=== PATIENT | male | born 2000 | race African-American/Black ===

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

== ENCOUNTER 2021-02-23 02:08 | Emergency (ER) | payer OTHER ==
[2021-02-23 02:25] LABS: Urine Blood Negative (Negative); Urine Glucose Trace (Negative); Urine Protein 2+ (Negative); Urine Specific Gravity 1.025 (1.005-1.030); Urine pH 7.5 (5.0-7.0)
[2021-02-23] MEDS ORDERED: NA CHLORIDE 0.9% 1,000 ML ONE ×2 (02:37→05:53)
[2021-02-23 03:04] LABS: Barbiturates NEGATIVE (NEGATIVE); Benzodiazepines POSITIVE (NEGATIVE); Cocaine NEGATIVE (NEGATIVE); METHAMPHETAM NEGATIVE (NEGATIVE); Methadone NEGATIVE (NEGATIVE); Opiates NEGATIVE (NEGATIVE); Phencyclidine NEGATIVE (NEGATIVE); THC Cannibis POSITIVE (NEGATIVE)
[2021-02-23 03:16] LABS: Absolute Lymphocytes (CBC) 1.3 K/uL (0.7-4.9); Basophils % 0.3 % (0-1.3); Hematocrit 39.4 % (39.6-49.0); Lymphocytes % 10.3 % (15.3-44.8); Protime INR 1.22; RBC Red Blood Cell Count 4.26 M/uL (4.33-5.43)
[2021-02-23 03:25] LABS: ALT/SGPT 27 U/L (12-78); AST/SGOT 17 U/L (15-37); Albumin 3.6 g/dL (3.4-5.0); Alkaline Phosphatase 55 U/L (45-117); BUN Blood Urea Nitrogen 6 mg/dL (7-18); Bicarbonate 28 mmol/L (21-32); Bilirubin Direct < 0.1 mg/dL (0-0.2); Bilirubin Total 0.3 mg/dL (0.2-1.0); Glucose Level 152 mg/dL (74-106); Potassium 3.2 mmol/L (3.5-5.1); Protein, Total 6.6 g/dL (6.4-8.2); Sodium Level 143 mmol/L (136-145)
[2021-02-23] MEDS ORDERED: POTASSIUM CL SA 10 MEQ TAB PO ONE (05:10)
--- NOTE | 2021-02-23 07:25 | RAD REPORT ---
EXAM DESCRIPTION: Viviana Single View02/23/2021 2:35 am CLINICAL HISTORY: Overdose COMPARISON: 2018 FINDINGS: The patient is in a poor degree of inspiration. The lungs appear clear of acute infiltrate. The heart is normal size
[2021-02-23] MEDS ORDERED: ALBUTEROL 2.5 MG/3 ML NEB SOL ONE (07:37)
[2021-02-23] MEDS ORDERED: IPRATROPIUM BROM 0.5MG/2.5ML ONE (07:38)
--- NOTE | 2021-02-23 07:49 | EKG ---
Test Date: 2021-02-23 Test Time: 02:10:10 Plant Attendant: LISET MEASUREMENT RESULTS: Intervals: Rate: 92 IA: 132 QRSD: 88 QT: 346 QTc: 427 [place]: P: 56 IA: 132 QRS: 50 T: 53 INTERPRETIVE STATEMENTS: Normal sinus rhythm Normal ECG Compared to ECG 11/29/2018 20:37:25 No significant changes Electronically Signed On 02-23-21 07:48:51 CDT by Raul Riley
--- NOTE | 2021-02-23 09:34 | ER ---
Nurse's Notes [facility] Name: Philippe Guerra Age: 20 yrs Sex: Male : 2000 Arrival Date: 02/23/2021 Time: 02:11 Bed 3 Private MD: Diagnosis: Abuse of non-psychoactive substances Presentation: 02/23 02:19 Chief complaint: EMS states: they were toned out for report of pt being unresponsive bb after pt snorting Percocet and taking alprazolam and pt admits to drinking ETOH. Coronavirus screen: At this time, the client does not indicate any symptoms associated with coronavirus-19. Ebola Screen: No symptoms or risks identified at this time. Initial Sepsis Screen: Does the patient meet any 2 criteria? No. Patient's initial sepsis screen is negative. Does the patient have a suspected source of infection? No. Patient's initial sepsis screen is negative. Risk Assessment: Do you want to hurt yourself or someone else? Unable to obtain. Onset of symptoms was February 23, 2021. 02:19 Method Of Arrival: Ambulatory bb 02:19 Acuity: DANIELA 2 bb 02:24 Note EMS states on their arrival pt respiratory rate was 4-6 breaths per minute, O2 was bb 30%, HR in the 50s, SBP 69 and irregular and pt was responsive to painful stimuli. Care prior to arrival: Medication(s) given: Normal saline infusion, Narcan for a total of 6 mg IV initiated. 18 GA, in the right antecubital area, Glucose check: 196. Historical: - Allergies: 02:23 No Known Allergies; bb - Home Meds: 09:27 None [Active]; jl7 - PMHx: 09:27 None; jl7 - PSHx: 09:27 None; jl7 - Immunization history:: Adult Immunizations unknown, Adult Immunizations unknown. - Social history:: Smoking status: unknown Patient uses street drugs, Smoking status: unknown. Screenin:21 Abuse screen: Denies threats or abuse. Nutritional screening: No deficits noted. ea Tuberculosis screening: No symptoms or risk factors identified. Fall Risk IV access (20 points). Assessment: 02:26 General: Behavior is cooperative, drowsy. Pain: Denies pain. Neuro: Level of ea Consciousness is Drowsy. Oriented to person. Cardiovascular: Patient's skin is warm and dry. Respiratory: Airway is patent Respiratory effort is even, unlabored, Respiratory pattern is regular, symmetrical, Pt currently on O2 at 5 L per nasal cannula, pt tolerating well. Derm: Skin is pink, warm \T\ dry. 03:10 Reassessment: Patient and/or family updated on plan of care and expected duration. Pain ea level reassessed. Pt resting with eyes closed, respirations even and unlabored, chest expansions even and symmetrical. Parents remain at bedside. 04:18 Reassessment: No changes from previously documented assessment. Patient and/or family ad5 updated on plan of care and expected duration. Pain level reassessed. Family remains at bedside. Pt resting comfortably in stretcher, remains low and locked, bedrails x 2, call light within reach. VSS. Will continue to monitor. 05:37 Reassessment: No changes from previously documented assessment. Pt remains drowsy, ad5 family at bedside. Pt arouses to tactile stimuli, continued O2 supplementation via NC at this time d/t O2 sat to 88% on RA. Provider aware. Will continue to monitor. 07:00 Reassessment: RECD REPORT FROM BLOSSOM DURAN. 20YO BM P/W OD/INGESTION. DISPO ON HOLD FOR bp SOBRIETY. 07:24 Reassessment: Ambulated pt without O2, pt sats dropped to 84%, Dr. Hawkins notified, VO for jl7 3:1 Neb treatment. O2 placed back on pt while in bed and sats remained less than 90% with occasional increase to 96% with verbal stimulation. Parents at bedside, deny any medical history. Parents report that his friend just 2 months ago from the same situation and he is still continuing to use recreational drugs. Breathing treatment placed on pt, monitoring via bedside cardiac and O2 monitor. 09:32 Reassessment: Removed o2 and let pt sleep while monitoring his O2 sats, sats stayed jl7 91-92%. Ambulated pt and sats remained 91-92%. ERD notified. Vital Signs: 02:19 BP 138 / 84; Pulse 110; Resp 16 S; Temp 98(O); Pulse Ox 100% on 5 lpm NC; Weight 91.63 bb kg (R); Height 5 ft. 6 in. (167.64 cm) (R); Pain 0/10; 03:11 BP 102 / 60; Pulse 71; Resp 16; Pulse Ox 95% on 3 lpm NC; ea 04:19 BP 98 / 50; Pulse 64; Resp 12 S; Pulse Ox 94% on 3 lpm NC; ad5 05:36 BP 92 / 60; Pulse 59; Resp 16; Pulse Ox 95% on R/A; ea 07:00 BP 111 / 59; Pulse 96; Resp 17; Pulse Ox 94% ; bp 07:24 BP 101 / 63; Pulse 85; Resp 17; Pulse Ox 95% on Nebulizer Mask; jl7 07:30 BP 108 / 63; Pulse 85; Resp 17; Pulse Ox 96% on 3 lpm NC; jl7 08:00 BP 99 / 55; Pulse 89; Resp 15; Pulse Ox 95% on 3 lpm NC; jl7 08:30 BP 102 / 53; Pulse 86; Resp 15 S; Pulse Ox 96% on 3 lpm NC; jl7 09:00 BP 98 / 53; Pulse 81; Resp 14; Pulse Ox 97% on 3 lpm NC; jl7 09:20 Pulse Ox 91% on R/A; jl7 09:26 BP 107 / 61; Pulse 83; Resp 17; Pulse Ox 92% on R/A; jl7 09:32 BP 113 / 74; Pulse 85; Resp 15 S; Pulse Ox 93% on R/A; jl7 02:19 Body Mass Index 32.60 (91.63 kg, 167.64 cm) bb ED Course: 02:11 Patient arrived in ED. mw2 02:17 Mert Hawkins MD is Attending Physician. pkl 02:21 Blossom Storey, RN is Primary Nurse. ea 02:21 Maintain EMS IV. Dressing intact. Good blood return noted. Site clean \T\ dry. Gauge \T\ ea site: 18 G RAC . 02:21 Patient has correct armband on for positive identification. Placed in gown. Bed in low ea position. Call light in reach. Side rails up X2. monitoring engineer on. Pulse ox on. NIBP on. 02:22 Triage completed. bb 02:23 Arm band placed on right wrist. Patient placed in an exam room, on a stretcher, on ea oxygen, on monitoring engineer, on pulse oximetry. 02:35 XRAY CXR (1 view) In Process Unspecified. EDMS 07:06 Primary Nurse role handed off by Blossom Storey RN bp 07:06 Collin Delgado, RN is Primary Nurse. bp 08:48 Attending Physician role handed off by Mert Hawkins MD kdr 08:48 Alvin Weiner MD is Attending Physician. kdr 09:43 No provider procedures requiring assistance completed. IV discontinued, intact, jl7 bleeding controlled, No redness/swelling at site. Pressure dressing applied. Administered Medications: 02:19 Drug: NS 0.9% 1000 ml Route: IV; Rate: 1000 ml; Site: right antecubital; ad5 04:55 Drug: K-Dur (potassium chloride) 40 mEq Route: PO; ea 05:36 Drug: NS 0.9% 1000 ml Route: IV; Rate: 1 bolus; Site: right antecubital; ad5 07:20 Drug: Albuterol - atroVENT (ipratropium) (3:1) (2.5 mg - 0.5 mg) 3 ml Route: Nebulizer; bp 08:36 Follow up: Response: No adverse reaction jl7 Outcome: 09:33 Discharge ordered by . kdr 09:43 Discharged to home ambulatory, with family. jl7 09:43 Condition: stable 09:43 Discharge instructions given to patient, Instructed on discharge instructions, follow up and referral plans. Demonstrated understanding of instructions, follow-up care. 09:56 Patient left the ED. jl7 Signatures: Dispatcher [employer] EDMS Mert Hawkins MD MD pkAlvin Horvath MD MD kdr Ballard, Brenda, RN Win Baron RN RN jl7 Blossom Storey RN RN ea Peltier, Brian, RN RN bp [place], MyKena 2 Adam Bailey ad5 Corrections: (The following items were deleted from the chart) 05:39 05:37 Reassessment: No changes from previously documented assessment. Pt remains ad5 drowsy, family at bedside. Pt arouses to tactile stimuli, still requires O2 supplementation via NC at this time. Will continue to monitor. ad5
--- NOTE | 2021-02-23 09:35 | EDPHYS ---
Physician Documentation [facility] Name: Philippe Guerra Age: 20 yrs Sex: Male : 2000 Arrival Date: 02/23/2021 Time: 02:11 Bed 3 Private MD: ED Physician Alvin Weiner HPI: 02/23 03:08 This 20 yrs old Black Male presents to ER via Ambulatory with unknown complaint. pkl 03:08 The patient presents with decreased mental status. Onset: The symptoms/episode pkl began/occurred just prior to arrival. Possible causes: drug use, benzodiazepines, marijuana, alcohol. Associated signs and symptoms: The patient has no apparent associated signs or symptoms. Historical: - Allergies: :23 No Known Allergies; bb - Home Meds: : None [Active]; jl7 - PMHx: : None; jl7 - PSHx: 09: None; jl7 - Immunization history:: Adult Immunizations unknown, Adult Immunizations unknown. - Social history:: Smoking status: unknown Patient uses street drugs, Smoking status: unknown. ROS: 03:08 Eyes: Negative for injury, pain, redness, and discharge, ENT: Negative for injury, pkl pain, and discharge, Neck: Negative for injury, pain, and swelling, Cardiovascular: Negative for chest pain, palpitations, and edema, Respiratory: Negative for shortness of breath, cough, wheezing, and pleuritic chest pain, Abdomen/GI: Negative for abdominal pain, nausea, vomiting, diarrhea, and constipation, Back: Negative for injury and pain, : Negative for injury, bleeding, discharge, and swelling, MS/Extremity: Negative for injury and deformity, Skin: Negative for injury, rash, and discoloration. 03:08 Neuro: Positive for altered mental status. Exam: 03:08 Head/Face: Normocephalic, atraumatic. Eyes: Pupils equal round and reactive to light, pkl extra-ocular motions intact. Lids and lashes normal. Conjunctiva and sclera are non-icteric and not injected. Cornea within normal limits. Periorbital areas with no swelling, redness, or edema. ENT: Nares patent. No nasal discharge, no septal abnormalities noted. Tympanic membranes are normal and external auditory canals are clear. Oropharynx with no redness, swelling, or masses, exudates, or evidence of obstruction, uvula midline. Mucous membranes moist. Neck: Trachea midline, no thyromegaly or masses palpated, and no cervical lymphadenopathy. Supple, full range of motion without nuchal rigidity, or vertebral point tenderness. No Meningismus. Chest/axilla: Normal chest wall appearance and motion. Nontender with no deformity. No lesions are appreciated. Cardiovascular: Regular rate and rhythm with a normal S1 and S2. No gallops, murmurs, or rubs. Normal PMI, no JVD. No pulse deficits. Respiratory: Lungs have equal breath sounds bilaterally, clear to auscultation and percussion. No rales, rhonchi or wheezes noted. No increased work of breathing, no retractions or nasal flaring. Abdomen/GI: Soft, non-tender, with normal bowel sounds. No distension or tympany. No guarding or rebound. No evidence of tenderness throughout. Back: No spinal tenderness. No costovertebral tenderness. Full range of motion. Skin: Warm, dry with normal turgor. Normal color with no rashes, no lesions, and no evidence of cellulitis. MS/ Extremity: Pulses equal, no cyanosis. Neurovascular intact. Full, normal range of motion. 03:08 Neuro: Orientation: Not oriented to person, place, time, Mentation: sleepy, responsive to pain, Motor: moves all fours. Vital Signs: 02:19 BP 138 / 84; Pulse 110; Resp 16 S; Temp 98(O); Pulse Ox 100% on 5 lpm NC; Weight 91.63 bb kg (R); Height 5 ft. 6 in. (167.64 cm) (R); Pain 0/10; 03:11 BP 102 / 60; Pulse 71; Resp 16; Pulse Ox 95% on 3 lpm NC; ea 04:19 BP 98 / 50; Pulse 64; Resp 12 S; Pulse Ox 94% on 3 lpm NC; ad5 05:36 BP 92 / 60; Pulse 59; Resp 16; Pulse Ox 95% on R/A; ea 07:00 BP 111 / 59; Pulse 96; Resp 17; Pulse Ox 94% ; bp 07:24 BP 101 / 63; Pulse 85; Resp 17; Pulse Ox 95% on Nebulizer Mask; jl7 07:30 BP 108 / 63; Pulse 85; Resp 17; Pulse Ox 96% on 3 lpm NC; jl7 08:00 BP 99 / 55; Pulse 89; Resp 15; Pulse Ox 95% on 3 lpm NC; jl7 08:30 BP 102 / 53; Pulse 86; Resp 15 S; Pulse Ox 96% on 3 lpm NC; jl7 09:00 BP 98 / 53; Pulse 81; Resp 14; Pulse Ox 97% on 3 lpm NC; jl7 09:20 Pulse Ox 91% on R/A; jl7 09:26 BP 107 / 61; Pulse 83; Resp 17; Pulse Ox 92% on R/A; jl7 09:32 BP 113 / 74; Pulse 85; Resp 15 S; Pulse Ox 93% on R/A; jl7 02:19 Body Mass Index 32.60 (91.63 kg, 167.64 cm) bb MDM: 02:17 Patient medically screened. pkl 09:51 Data reviewed: vital signs, nurses notes, lab test result(s), radiologic studies. kdr Counseling: I had a detailed discussion with the patient and/or guardian regarding: the historical points, exam findings, and any diagnostic results supporting the discharge/admit diagnosis, lab results, radiology results, the need for outpatient follow up. Response to treatment: the patient's symptoms have markedly improved after treatment, the patient is now symptom free, patient is well hydrated. Special discussion: I discussed with the patient/guardian in detail that at this point there is no indication for admission to the hospital. It is understood, however, that if the symptoms persist or worsen the patient needs to return immediately for re-evaluation. 02/23 02:19 Order name: Acetaminophen pkl 02/23 02:19 Order name: Basic Metabolic Panel; Complete Time: 04:10 pkl 02/23 02:19 Order name: CBC with Diff; Complete Time: 04:10 pkl 02/23 02:19 Order name: ETOH Level; Complete Time: 03:59 pkl 02/23 02:19 Order name: Hepatic Function; Complete Time: 04:10 pkl 02/23 02:19 Order name: PT-INR; Complete Time: 04:10 pkl 02/23 02:19 Order name: Ptt, Activated; Complete Time: 04:10 pkl 02/23 02:19 Order name: Salicylate; Complete Time: 04:10 pkl 06/22 02:19 Order name: Urine Drug Screen; Complete Time: 03:06 pkl 02/23 02:19 Order name: XRAY CXR (1 view); Complete Time: 08:56 pkl 02/23 02:20 Order name: Acetaminophen Level; Complete Time: 04:10 EDMS 02/23 02:25 Order name: Urine Dipstick-Ancillary; Complete Time: 03:06 EDMS 02/23 07:15 Order name: ABG pkl 02/23 02:19 Order name: EKG; Complete Time: 02:20 pkl 02/23 02:19 Order name: EKG - Nurse/Tech; Complete Time: 02:20 pkl 02/23 02:19 Order name: IV Saline Lock; Complete Time: 02:20 pkl 02/23 02:19 Order name: Labs collected and sent; Complete Time: 02:20 pkl 02/23 02:19 Order name: Urine Dipstick-Ancillary (obtain specimen); Complete Time: 02:29 pkl 02/23 08:58 Order name: Misc. Order: Ambulate patient and record VS prior to ambulation and post kdr ambulation; Complete Time: 09:34 Administered Medications: 02:19 Drug: NS 0.9% 1000 ml Route: IV; Rate: 1000 ml; Site: right antecubital; ad5 04:55 Drug: K-Dur (potassium chloride) 40 mEq Route: PO; ea 05:36 Drug: NS 0.9% 1000 ml Route: IV; Rate: 1 bolus; Site: right antecubital; ad5 07:20 Drug: Albuterol - atroVENT (ipratropium) (3:1) (2.5 mg - 0.5 mg) 3 ml Route: Nebulizer; bp 08:36 Follow up: Response: No adverse reaction jl7 Disposition: 02/23/21 09:33 Discharged to Home. Impression: Abuse of non-psychoactive substances. - Condition is Stable. - Discharge Instructions: Substance Use Disorder. - Medication Reconciliation Form, Thank You Letter, Family Work Release form. - Follow up: Private Physician; When: 2 - 3 days; Reason: If symptoms return, Further diagnostic work-up, Recheck today's complaints, Continuance of care, Re-evaluation by your physician. - Problem is new. - Symptoms have improved. Signatures: Dispatcher [employer] EDMS Mert Hawkins, MD MD pkAlvin Horvath MD MD kdr Ballard, Brenda RN RN bb Samson Rooney, SECOND SHIFT SUPERVISOR-C SECOND SHIFT SUPERVISOR-Cla1 Win Pena RN RN jl7 Blossom Storey, RN Collin Lundberg ea, RN RN Adam Javed Corrections: (The following items were deleted from the chart) 07:26 02:19 Suicide Screening ([place]) ordered. [facility] 09:56 09:33 02/23/2021 09:33 Discharged to Home. Impression: Abuse of non-psychoactive 7 substances. Condition is Stable. Forms are Medication Reconciliation Form, Thank You Letter, Antibiotic Education, Prescription Opioid Use. Follow up: Private Physician; When: 2 - 3 days; Reason: If symptoms return, Further diagnostic work-up, Recheck today's complaints, Continuance of care, Re-evaluation by your physician. Problem is new. Symptoms have improved. kdr
[2021-02-23 10:03] VITALS: TEMP 98
[2021-02-23 10:22] VITALS: BP 113/74; O2SAT 93
== END 2021-02-23 09:56 | disposition home or self-care (01) ==
LOC: ER 02:08
DX: F55.8 Abuse of other non-psychoactive substances (principal)
CPT/HCPCS: 93005; 85025; 80048; 36415; 80320; 80329 ×2; 85610; 80076; 80307 ×8; 85730; 81003; 71045; J7030 ×2; 99285

== ENCOUNTER 2021-03-05 18:18 | Emergency (ER) | payer OTHER ==
[2021-03-05 18:48] LABS: Absolute Lymphocytes (CBC) 1.3 K/uL (0.7-4.9); Basophils % 0.6 % (0-1.3); Hematocrit 45.8 % (39.6-49.0); Lymphocytes % 12.4 % (15.3-44.8); MPV 9.8 fL (7.6-11.3); RBC Red Blood Cell Count 5.03 M/uL (4.33-5.43)
[2021-03-05 18:49] LABS: Protime INR 1.18
[2021-03-05 19:03] LABS: ALT/SGPT 28 U/L (12-78); AST/SGOT 15 U/L (15-37); Albumin 4.3 g/dL (3.4-5.0); Alkaline Phosphatase 64 U/L (45-117); BUN Blood Urea Nitrogen 6 mg/dL (7-18); Bicarbonate 25 mmol/L (21-32); Bilirubin Direct 0.2 mg/dL (0-0.2); Bilirubin Total 0.6 mg/dL (0.2-1.0); Glucose Level 132 mg/dL (74-106); Magnesium 2.2 mg/dL (1.8-2.4); NT PRO-BNP 91 pg/mL (<125); Potassium 3.6 mmol/L (3.5-5.1); Protein, Total 8.2 g/dL (6.4-8.2); Sodium Level 142 mmol/L (136-145); Troponin (Emerg Dept Use Only) < 0.02 ng/mL (0.0-0.045)
--- NOTE | 2021-03-05 19:10 | RAD REPORT ---
EXAM DESCRIPTION: Viviana Single View03/05/2021 7:03 pm CLINICAL HISTORY: Syncope COMPARISON: February 23, 2021 FINDINGS: The lungs appear clear of acute infiltrate. The heart is normal size IMPRESSION: No acute abnormalities displayed
[2021-03-05] MEDS ORDERED: NA CHLORIDE 0.9% 1,000 ML ONE (19:14)
--- NOTE | 2021-03-05 19:17 | RAD REPORT ---
EXAM DESCRIPTION: CT - Head Brain Wo Cont - 03/05/2021 6:57 pm CLINICAL HISTORY: Syncope COMPARISON: None TECHNIQUE: Computed axial tomography of the head was obtained. IV contrast was not requested. All CT scans are performed using dose optimization technique as appropriate and may include automated exposure control or mA/KV adjustment according to patient size. FINDINGS: An intracranial bleed is not seen . The ventricles are normal in caliber. No extra-axial fluid collection is noted. Mild cerebellar tonsillar ectopia Fluid within the sinuses/ mastoids is not seen. IMPRESSION: Mild cerebellar tonsillar ectopia No acute intracranial abnormality is seen. If patient's symptoms persist MRI of the brain would be r ecommended.
--- NOTE | 2021-03-05 20:14 | ER ---
Nurse's Notes [facility] Name: Philippe Guerra Age: 20 yrs Sex: Male : 2000 Arrival Date: 03/05/2021 Time: 18:18 Bed 25 Private MD: Diagnosis: Syncope Presentation: 03/05 18:25 Chief complaint: EMS states: patient had syncope episode at work today . patient felt zb light headed and fell and hit the back of his head. + LOC. On arrived patient was AOX4. c/o headache to frontal head. no history of dizziness. patient stated that he didn't eat today and was feeling weak from not eating. Coronavirus screen: At this time, the client does not indicate any symptoms associated with coronavirus-19. Ebola Screen: No symptoms or risks identified at this time. Initial Sepsis Screen: Does the patient meet any 2 criteria? No. Patient's initial sepsis screen is negative. Does the patient have a suspected source of infection? No. Patient's initial sepsis screen is negative. Risk Assessment: Do you want to hurt yourself or someone else? Patient reports no desire to harm self or others. Onset of symptoms was March 05, 2021. 18:25 Acuity: DANIELA 3 zb 18:25 Method Of Arrival: EMS: [facility] zb Triage Assessment: 18:28 General: Appears in no apparent distress. comfortable, Behavior is calm, cooperative, zb appropriate for age. Pain: Complains of pain in forehead Pain currently is 4 out of 10 on a pain scale. Neuro: Level of Consciousness is awake, alert, obeys commands, Oriented to person, place, time, situation, Reports headache frontal area, a syncopal episode Denies blurred vision. Cardiovascular: Patient's skin is warm and dry. Respiratory: Airway is patent Respiratory effort is even, unlabored, Respiratory pattern is regular, symmetrical. GI: No deficits noted. Derm: Skin is intact, is healthy with good turgor, Skin is dry, Skin is normal, Skin temperature is warm. Musculoskeletal: Circulation, motion, and sensation intact. Range of motion: intact in all extremities. Historical: - Allergies: 18:28 No Known Allergies; zb - Home Meds: 18:28 None [Active]; zb - PSHx: 18:28 None; zb - Immunization history:: Adult Immunizations up to date. - Social history:: Smoking status: Patient reports the use of cigarette tobacco products, smokes one pack cigarettes per day. Screenin:29 Abuse screen: Denies threats or abuse. Denies injuries from another. Nutritional zb screening: No deficits noted. Tuberculosis screening: No symptoms or risk factors identified. Fall Risk None identified. Assessment: 18:30 Reassessment: see triage assessment. zb 19:02 Neuro: No deficits noted. Cardiovascular: Rhythm is regular. zb 19:51 Reassessment: Patient appears in no apparent distress at this time. Patient and/or zb family updated on plan of care and expected duration. Pain level reassessed. Patient is alert, oriented x 3, equal unlabored respirations, skin warm/dry/pink. 20:25 Reassessment: Patient appears in no apparent distress at this time. Patient and/or zb family updated on plan of care and expected duration. Pain level reassessed. Patient is alert, oriented x 3, equal unlabored respirations, skin warm/dry/pink. d/c instructions given. family at bedside. patient ambulated out. gait even and steady. Vital Signs: 18:25 BP 142 / 77; Pulse 74; Resp 18; Temp 98.1(O); Pulse Ox 98% on R/A; Weight 89.36 kg; zb Height 5 ft. 6 in. (167.64 cm); Pain 4/10; 19:51 BP 101 / 81; Pulse 68; Resp 19; Pulse Ox 100% on R/A; zb 20:25 BP 117 / 72; Pulse 65; Resp 16; Pulse Ox 100% on R/A; zb 18:25 Body Mass Index 31.80 (89.36 kg, 167.64 cm) zb ED Course: 18:18 Patient arrived in ED. ds1 18:23 Franco Osei PA is PHCP. [facility] 18:23 Alvin Weiner MD is Attending Physician. [facility] 18:25 Shelli Kendrick RN is Primary Nurse. zb 18:28 Triage completed. zb 18:29 Patient has correct armband on for positive identification. manager monitoring on. Pulse zb ox on. NIBP on. Door closed. Noise minimized. 18:30 Initial lab(s) drawn, by me, sent to lab. EKG done, by ED staff, reviewed by Franco BENITEZ. Inserted saline lock: 20 gauge in left antecubital area, using aseptic technique. Blood collected. 18:56 CT Head Brain wo Cont In Process Unspecified. EDMS 19:02 XRAY Chest (1 view) In Process Unspecified. EDMS 19:02 Arm band placed on. EKG completed in triage. Results shown to MD. celeste 20:26 No provider procedures requiring assistance completed. IV discontinued, intact, zb bleeding controlled, No redness/swelling at site. Pressure dressing applied. Administered Medications: 19:09 Drug: NS 0.9% 1000 ml Route: IV; Rate: 1 bolus; Site: left antecubital; zb 20:24 Follow up: Response: No adverse reaction; IV Status: Completed infusion; IV Intake: zb 1000ml Intake: 20:24 IV: 1000ml; Total: 1000ml. zb Outcome: 20:13 Discharge ordered by . bria 20:26 Discharged to home ambulatory. zb 20:26 Condition: stable 20:26 Discharge instructions given to patient, family, Instructed on discharge instructions, follow up and referral plans. Demonstrated understanding of instructions, follow-up care. 20:26 Patient left the ED. celeste Signatures: Dispatcher [employer] Franco Walker PA PA jmm Sanford, Demi ds1 Shelli Kendrick, RN RN celeste
--- NOTE | 2021-03-05 20:14 | EDPHYS ---
Physician Documentation [facility] Name: Philippe Guerra Age: 20 yrs Sex: Male : 2000 Arrival Date: 03/05/2021 Time: 18:18 Bed 25 Private MD: ED Physician Alvin Weiner HPI: 03/05 18:26 This 20 yrs old Black Male presents to ER via EMS with complaints of Syncope. jmm 18:26 The patient has experienced syncope. Onset: The symptoms/episode began/occurred jmm acutely, just prior to arrival. Duration: This was a single episode. Associated injury: Head/face: pain. Associated signs and symptoms: Pertinent positives: headache, Pertinent negatives: abdominal pain, blurred vision, chest pain, combativeness, confusion, diaphoresis, diarrhea, dizziness. Current symptoms: headache, that is mild. The patient has not experienced similar symptoms in the past. Patient states he did not eat today while at work. Historical: - Allergies: 18:28 No Known Allergies; zb - Home Meds: 18:28 None [Active]; zb - PSHx: 18:28 None; zb - Immunization history:: Adult Immunizations up to date. - Social history:: Smoking status: Patient reports the use of cigarette tobacco products, smokes one pack cigarettes per day. ROS: 18:26 Constitutional: Negative for fever, chills, and weight loss, Cardiovascular: Negative jmm for chest pain, palpitations, and edema, Respiratory: Negative for shortness of breath, cough, wheezing, and pleuritic chest pain. 18:26 Neuro: Positive for headache. 18:26 All other systems are negative. Exam: 18:26 Constitutional: This is a well developed, well nourished patient who is awake, alert, jmm and in no acute distress. Head/Face: atraumatic. Eyes: EOMI, no conjunctival erythema appreciated ENT: Moist Mucus Membranes Neck: Trachea midline, Supple Chest/axilla: Normal chest wall appearance and motion. Cardiovascular: Regular rate and rhythm. No edema appreciated Respiratory: Normal respirations, no respiratory distress appreciated Abdomen/GI: Non distended, soft Back: Normal ROM Skin: General appearance color normal MS/ Extremity: Moves all extremities, no obvious deformities appreciated, no edema noted to the lower extremities Neuro: Awake and alert, normal gait Psych: Behavior is normal, Mood is normal, Patient is cooperative and pleasant Vital Signs: 18:25 BP 142 / 77; Pulse 74; Resp 18; Temp 98.1(O); Pulse Ox 98% on R/A; Weight 89.36 kg; zb Height 5 ft. 6 in. (167.64 cm); Pain 4/10; 19:51 BP 101 / 81; Pulse 68; Resp 19; Pulse Ox 100% on R/A; zb 20:25 BP 117 / 72; Pulse 65; Resp 16; Pulse Ox 100% on R/A; zb 18:25 Body Mass Index 31.80 (89.36 kg, 167.64 cm) zb MDM: 18:26 Patient medically screened. [facility] 20:11 Data reviewed: vital signs, nurses notes. Counseling: I had a detailed discussion with bria the patient and/or guardian regarding: the historical points, exam findings, and any diagnostic results supporting the discharge/admit diagnosis, lab results, radiology results, the need for outpatient follow up, to return to the emergency department if symptoms worsen or persist or if there are any questions or concerns that arise at home. ED course: [place] syncope negative. Patient advised to follow up with pcp/cardiology for further evaluation. Patient is otherwise given strict return precautions. patient understood and agrees with the plan of care. . 03/05 18:27 Order name: Basic Metabolic Panel; Complete Time: 19:10 [facility] 03/05 18:27 Order name: CBC with Diff; Complete Time: 19:10 [facility] 03/05 18:27 Order name: LFT's; Complete Time: 19:10 [facility] 03/05 18:27 Order name: Magnesium; Complete Time: 19:10 [facility] 03/05 18:27 Order name: NT PRO-BNP; Complete Time: 19:10 [facility] 03/05 18:27 Order name: PT-INR; Complete Time: 19:10 [facility] 03/05 18:27 Order name: Troponin (emerg Dept Use Only); Complete Time: 19:10 [facility] 03/05 18:27 Order name: XRAY Chest (1 view); Complete Time: 19:28 [facility] 03/05 18:27 Order name: EKG; Complete Time: 18:28 [facility] 03/05 18:27 Order name: Cardiac monitoring; Complete Time: 19:01 [facility] 03/05 18:27 Order name: EKG - Nurse/Tech; Complete Time: 19: [facility] 03/05 18:27 Order name: CT Head Brain wo Cont; Complete Time: : [facility] 03/05 18:27 Order name: D-Dimer; Complete Time: 19:10 [facility] 03/05 18:27 Order name: IV Saline Lock; Complete Time: 19: [facility] 03/05 18:27 Order name: Labs collected and sent; Complete Time: : [facility] 03/05 18:27 Order name: O2 Per Protocol; Complete Time: 19: [facility] 03/05 18:27 Order name: O2 Sat Monitoring; Complete Time: : [facility] Administered Medications: : Drug: NS 0.9% 1000 ml Route: IV; Rate: 1 bolus; Site: left antecubital; zb 20:24 Follow up: Response: No adverse reaction; IV Status: Completed infusion; IV Intake: zb 1000ml Disposition Summary: 03/05/21 20:13 Discharge Ordered Location: Home [facility] Condition: Stable [facility] Diagnosis - Syncope [facility] Followup: [facility] - With: Private Physician - When: 2 - 3 days - Reason: Recheck today's complaints, Continuance of care, Re-evaluation by your physician Discharge Instructions: - Discharge Summary Sheet [facility] - Syncope [facility] Forms: - Medication Reconciliation Form [facility] - Thank You Letter [facility] - Antibiotic Education [facility] - Prescription Opioid Use [facility] Addendum: 03/08/2021 13:31 Co-signature as Attending Physician, Alvin Weiner MD I agree with the assessment and k dr plan of care. Signatures: Dispatcher [employer] Alvin Nathan MD MD kdr Mickail, Joel, PA PA Shelli Kiser RN RN zb
[2021-03-05 20:57] VITALS: TEMP 98.1
[2021-03-05 20:59] VITALS: O2SAT 100
[2021-03-05 21:00] VITALS: BP 117/72
--- NOTE | 2021-03-06 10:26 | EKG ---
Test Date: 2021-03-05 Test Time: 18:45:25 Bunch Maker Hand: ROYCE MEASUREMENT RESULTS: Intervals: Rate: 71 MD: 140 QRSD: 86 QT: 370 QTc: 402 Archer: P: 27 MD: 140 QRS: 48 T: 0 INTERPRETIVE STATEMENTS: Poor data quality, interpretation may be adversely affected Normal sinus rhythm Normal ECG Compared to ECG 02/23/2021 02:10:10 No significant changes Electronically Signed On 03-06-21 10:25:34 CDT by Raul Riley
== END 2021-03-05 20:26 | disposition home or self-care (01) ==
LOC: ER 18:18
DX: R55 Syncope and collapse (principal); F17.210 Nicotine dependence, cigarettes, uncomplicated
CPT/HCPCS: 93005; 85025; 80048; 36415; 83735; 85610; 85379; 80076; 84484; 83880; 70450; 71045; 96360; 99285; J7030

== ENCOUNTER 2021-04-15 16:22 | Emergency (ER) | payer OTHER ==
--- NOTE | 2021-04-15 17:29 | ER ---
Nurse's Notes [facility] Name: Philippe Guerra Age: 20 yrs Sex: Male : 2000 Arrival Date: 04/15/2021 Time: 16:23 Bed Waiting Private MD: Diagnosis: Other seizures Presentation: 04/15 16:47 Chief complaint: EMS states: Pt was found at [facility] parking lot, AMS, pinpoint ss pupils. Patient admitted to using marijuana last night, but denied any drug use. Family member on scene reported that patient had an accidental overdose 1 month ago using "fake Percocet". After starting an IV and administering IV fluids, patient is now A\\T\\O x4. VS WNL. Coronavirus screen: Client denies travel out of the [place] in the last 14 days. Ebola Screen: Patient denies exposure to infectious person. Patient denies travel to an Ebola-affected area in the 21 days before illness onset. Initial Sepsis Screen: Does the patient meet any 2 criteria? No. Patient's initial sepsis screen is negative. Does the patient have a suspected source of infection? No. Patient's initial sepsis screen is negative. Risk Assessment: Do you want to hurt yourself or someone else? Patient reports no desire to harm self or others. Onset of symptoms was April 15, 2021. 16:47 Method Of Arrival: EMS: [facility] ss 16:47 Acuity: DANIELA 3 ss 16:49 Care prior to arrival: Medication(s) given: Normal saline infusion, 1000 mL, IV ss initiated. 20 GA, in the right hand. Historical: - Allergies: 16:49 No Known Allergies; ss - Home Meds: 16:49 None [Active]; ss - PMHx: 16:49 None; ss - PSHx: 16:49 Tonsillectomy; ss Assessment: 17:24 Reassessment: Pt requesting to leave, EMMANUEL Andersen notified, and in triage, pt A\\T\\Ox4. jl7 Vital Signs: 17:16 BP 128 / 68; Pulse 69; Resp 15; Temp 97.9; Pulse Ox 100% ; Weight 88.45 kg; Height 5 jl7 ft. 6 in. (167.64 cm); 17:16 Body Mass Index 31.47 (88.45 kg, 167.64 cm) jl7 [place] Coma Score: 16:49 Eye Response: spontaneous(4). Verbal Response: oriented(5). Motor Response: obeys ss commands(6). Total: 15. ED Course: 16:23 Patient arrived in ED. as 16:49 Triage completed. ss 16:49 Arm band placed on right wrist. ss 17:23 Natanael Holguin PA is PHCP. cp 17:23 Alvin Weiner MD is Attending Physician. cp 17:28 Tobias Cabrales MD is Referral Physician. cp Administered Medications: No medications were administered Outcome: 18:12 AMA AMA form signed jl7 18:13 Patient left the ED. jl7 Signatures: Tala Valentine Shelby, RN RN Natanael Holguin PA PA cp Win Pena RN RN jl7 Corrections: (The following items were deleted from the chart) 17:29 16:47 Chief complaint: EMS states: Pt was found at [facility] parking lot, AMS, ss pinpoint pupils. Patient admitted to using marijuana last night, but denied any drug use. Family member on scene reported that patient had an accidental overdose 1 month ago using "fake Percocet". After starting an IV and administering IV fluids, patient is now A\\T\\O x1. VS WNL ss
--- NOTE | 2021-04-15 17:29 | EDPHYS ---
Physician Documentation [facility] Name: Philippe Guerra Age: 20 yrs Sex: Male : 2000 Arrival Date: 04/15/2021 Time: 16:23 Bed Waiting Private MD: ED Physician Alvin Weiner HPI: 04/15 17:20 This 20 yrs old Black Male presents to ER via EMS with complaints of Seizure. cp 17:20 The patient presents with seizure activity. Onset: The symptoms/episode began/occurred cp just prior to arrival. Possible causes: drug use, marijuana. Current symptoms: In the emergency department the patient's symptoms have resolved, the patient is alert and fully oriented. Patient's baseline: Motor: no deficits, Ambulation: walks without assistance, Speech: normal, The patient has a previous history of Seizure. 17:20 Associated signs and symptoms: The patient has no apparent associated signs or symptoms.cp Historical: - Allergies: 16:49 No Known Allergies; ss - Home Meds: 16:49 None [Active]; ss - PMHx: 16:49 None; ss - PSHx: 16:49 Tonsillectomy; ss ROS: 17:25 Eyes: Negative for injury, pain, redness, and discharge. cp 17:25 Constitutional: Negative for body aches, chills, fever, poor PO intake. 17:25 ENT: Negative for ear pain, sore throat, difficulty swallowing, difficulty handling secretions. 17:25 Cardiovascular: Negative for chest pain, edema, palpitations. 17:25 Respiratory: Negative for cough, shortness of breath, wheezing. 17:25 Abdomen/GI: Negative for abdominal pain, nausea, vomiting, and diarrhea. 17:25 Skin: Negative for cellulitis, rash. 17:25 Neuro: Positive for history of seizure. 17:25 All other systems are negative. Exam: 17:26 Head/Face: Normocephalic, atraumatic. cp 17:26 Constitutional: The patient appears in no acute distress, alert, awake, non-diaphoretic, non-toxic, well developed, well nourished. 17:26 Eyes: Periorbital structures: appear normal, Pupils: equal, round, and reactive to light and accomodation, Extraocular movements: intact throughout, Sclera: no appreciated abnormality, Lids and lashes: appear normal, bilaterally. 17:26 ENT: External ear(s): are unremarkable, Ear canal(s): are normal, clear, TM's: dullness, bilaterally, Mouth: Lips: moist, Posterior pharynx: Airway: no evidence of obstruction, patent. 17:26 Neck: C-spine: vertebral tenderness, is not appreciated, crepitus, is not appreciated, ROM/movement: is normal, is supple, without pain, no range of motions limitations, no meningismus, no nuchal rigidity. 17:26 Chest/axilla: Inspection: normal, Palpation: is normal, no crepitus, no tenderness. 17:26 Cardiovascular: Rate: normal, Rhythm: regular, Edema: is not appreciated, JVD: is not appreciated. 17:26 Respiratory: the patient does not display signs of respiratory distress, Respirations: normal, no use of accessory muscles, no retractions, labored breathing, is not present, Breath sounds: are clear throughout, no decreased breath sounds. 17:26 Abdomen/GI: Exam negative for discomfort, distension, guarding, Inspection: abdomen appears normal. 17:26 Neuro: Orientation: to person, place \T\ time. Mentation: is normal, Cerebellar function: is grossly normal, Motor: moves all fours, strength is normal, Sensation: is normal, Gait: is steady, at a normal pace, without difficulty. Vital Signs: 17:16 BP 128 / 68; Pulse 69; Resp 15; Temp 97.9; Pulse Ox 100% ; Weight 88.45 kg; Height 5 jl7 ft. 6 in. (167.64 cm); 17:16 Body Mass Index 31.47 (88.45 kg, 167.64 cm) jl7 Warren Coma Score: 16:49 Eye Response: spontaneous(4). Verbal Response: oriented(5). Motor Response: obeys ss commands(6). Total: 15. MDM: 17:28 Patient medically screened. 17:28 Differential Diagnosis: electrolyte abnormality, alcohol intoxication, overdose, cp seizure, volume depletion. 17:28 Data reviewed: vital signs, nurses notes. 04/15 16:38 Order name: EKG - Nurse/Tech 04/15 16:38 Order name: IV Saline Lock 04/15 16:38 Order name: Labs collected and sent 04/15 16:38 Order name: Suicide Screening ([place]) cp 04/15 16:38 Order name: Urine Dipstick-Ancillary (obtain specimen) cp Administered Medications: No medications were administered Disposition: 18:54 Co-signature as Attending Physician, Alvin Weiner MD I agree with the assessment and kdr plan of care. Disposition Summary: 04/15/21 17:28 Left Against Medical Advice Location: Home cp Problem: new cp Symptoms: are resolved cp Condition: Stable cp Diagnosis - Other seizures cp Followup: cp - With: Tobias Cabrales MD - When: 1 - 2 days - Reason: Recheck today's complaints Discharge Instructions: - Discharge Summary Sheet cp - Seizure, Adult cp Signatures: Dispatcher [employer] EDMS Alvin Weiner MD MD kdr Smirch, Shelby, RN RN ss Natanael Holguin PA PA cp Corrections: (The following items were deleted from the chart) 17:23 16:39 CBC+H.LAB.BRZ ordered. EDMS EDMS 17:23 16:39 ETHANOL+C.LAB.BRZ ordered. EDMS EDMS 17:23 16:39 PROTIME (+INR)+COAG.LAB.BRZ ordered. EDMS EDMS 17:23 16:39 PTT, ACTIVATED+COAG.LAB.BRZ ordered. EDMS EDMS 17:23 16:39 SALICYLATE+C.LAB.BRZ ordered. EDMS EDMS 17:24 16:39 ACETAMINOPHEN+C.LAB.BRZ ordered. EDMS EDMS 17:24 16:39 BASIC METABOLIC PANEL+C.LAB.BRZ ordered. EDMS EDMS 17:24 16:39 HEPATIC FUNCTION+C.LAB.BRZ ordered. EDMS EDMS
[2021-04-15 18:18] VITALS: BP 128/68; TEMP 97.9; O2SAT 100
== END 2021-04-15 18:13 | disposition left against medical advice (07) ==
LOC: ER 16:22
DX: G40.89 Other seizures (principal)
CPT/HCPCS: 99282

== ENCOUNTER 2023-05-24 06:21 | Emergency (ER) | payer OTHER, SELFPAY ==
[2023-05-24 06:43] LABS: Absolute Lymphocytes (CBC) 1.4 K/uL (0.7-4.9); Hematocrit 44.6 % (39.6-49.0); Lymphocytes % 6.1 % (15.3-44.8); MCV 91.8 fL (80-100); MPV 8.4 fL (7.6-11.3); Platelets 306 thou/uL (152-406); RBC Red Blood Cell Count 4.85 M/uL (4.33-5.43)
--- NOTE | 2023-05-24 06:54 | ER ---
Nurse's Notes [facility] Name: Philippe Guerra Age: 22 yrs Sex: Male : 2000 Arrival Date: 05/24/2023 Time: 06:21 Bed 3 Private MD: Diagnosis: Adverse effect of other narcotics;Abuse of other non-psychoactive substances;Hyperglycemia, unspecified;Elevated white blood cell count;Acute respiratory failure-seconday to overdose, narcotics Presentation: 05/24 06:25 Chief complaint: EMS states: PT FOUND IN THE BATHROOM FLOOR, UNCONSCIOUS, AGONAL rv BREATHING. NARCAN 1MG IM AND 1MG IV GIVEN, PT IS AAOX4 UPON ARRIVAL. PT ADMITS USING PERCOCET. Coronavirus screen: At this time, the client does not indicate any symptoms associated with coronavirus-19. Ebola Screen: No symptoms or risks identified at this time. Initial Sepsis Screen: Does the patient meet any 2 criteria? No. Patient's initial sepsis screen is negative. Does the patient have a suspected source of infection? No. Patient's initial sepsis screen is negative. Risk Assessment: Do you want to hurt yourself or someone else? Patient reports no desire to harm self or others. Onset of symptoms is unknown. 06:25 Method Of Arrival: EMS: [facility] rv 06:25 Acuity: DANIELA 2 rv Triage Assessment: 06:30 General: Appears unkempt, Behavior is calm, cooperative. Pain: Denies pain. Neuro: rv Level of Consciousness is alert, Oriented to person, place, time, situation. Cardiovascular: Capillary refill < 3 seconds Patient's skin is warm and dry. Respiratory: Airway is patent Respiratory effort is even, unlabored. GI: No signs and/or symptoms were reported involving the gastrointestinal system. : No signs and/or symptoms were reported regarding the genitourinary system. Derm: Skin is intact. Historical: - Allergies: 06:30 No Known Allergies; rv - PMHx: 06:30 None; rv - PSHx: 06:30 Tonsillectomy; rv - Immunization history:: Adult Immunizations up to date. - Social history:: Smoking status: unknown. - Family history:: not pertinent. Screenin:32 [facility] ED Fall Risk Assessment (Adult) History of falling in the last 3 months, rv including since admission No falls in past 3 months (0 pts) Score/Fall Risk Level 0 - 2 = Low Risk Oriented to surroundings, Maintained a safe environment, Educated pt \T\ family on fall prevention, incl call for assistance when getting out of bed, Assessed \T\ reinforced patient's understanding of fall precautions, Provided non-skid footwear, Hourly rounding (assess needs \T\ fall precautionary measures) done, Used ambulatory aids as needed (educated on \T\ assisted with), Used gait belt as appropriate. Abuse screen: Denies threats or abuse. Denies injuries from another. Nutritional screening: No deficits noted. Tuberculosis screening: No symptoms or risk factors identified. Assessment: 06:32 Reassessment: SEE TRIAGE NOTES. rv 07:30 General: Appears in no apparent distress. comfortable, Behavior is calm, cooperative. rs5 Pain: Denies pain. Neuro: Level of Consciousness is awake, alert, obeys commands, Oriented to person, place, time, situation. Cardiovascular: Rhythm is regular. Respiratory: Airway is patent Respiratory effort is even, unlabored, Respiratory pattern is regular, symmetrical. GI: Abdomen is round non-distended, Abd is soft and non tender X 4 quads. Reports nausea, vomiting. : No signs and/or symptoms were reported regarding the genitourinary system. EENT: No signs and/or symptoms were reported regarding the EENT system. Derm: Skin is dry, Skin is normal, Skin temperature is warm. Musculoskeletal: Range of motion: intact in all extremities. 08:20 Reassessment: No changes from previously documented assessment. rs5 08:50 Reassessment: Pt in room dry heaving, provider notified. rs5 09:10 Reassessment: Pt denies N/V. rs5 Vital Signs: 06:25 BP 132 / 90; Pulse 104; Resp 18; Temp 99.6; Pulse Ox 97% ; Weight 86.18 kg; Height 5 rv ft. 0 in. ; 06:49 BP 124 / 80; Pulse 95; Resp 18; Pulse Ox 97% on R/A; rv 06:25 Body Mass Index 37.11 (86.18 kg, 152.4 cm) rv Ayo Coma Score: 06:32 Eye Response: spontaneous(4). Motor Response: obeys commands(6). Verbal Response: rv oriented(5). Total: 15. 06:49 Eye Response: spontaneous(4). Motor Response: obeys commands(6). Verbal Response: rv oriented(5). Total: 15. ED Course: 06:25 Patient arrived in ED. rv 06:28 Natanael Goncalves MD is Attending Physician. claudia 06:29 Collin Delgado, RN is Primary Nurse. bp 06:30 Triage completed. rv 06:30 Arm band placed on right wrist. rv 06:32 Patient has correct armband on for positive identification. rv 06:32 No provider procedures requiring assistance completed. Maintain EMS IV. Dressing rv intact. Good blood return noted. Site clean \T\ dry. Gauge \T\ site: G20 LAC. 06:39 Chest Single View XRAY In Process Unspecified. EDMS 06:53 Nael Palmer MD is Referral Physician. claudia 09:10 IV discontinued, intact, bleeding controlled, No redness/swelling at site. Pressure rs5 dressing applied. Administered Medications: 06:45 Drug: NS 0.9% IV 1000 ml IV at 1 bolus Per protocol; 1000 mL bolus Route: IV; Rate: 1 rv bolus; Site: left antecubital; 07:02 Follow up: Response: No adverse reaction rs5 09:02 Drug: Ondansetron IVP 4 mg IVP once; over 2 minutes Route: IVP; Site: left antecubital; rs5 09:11 Follow up: Response: No adverse reaction; Nausea is decreased rs5 Medication: 06:32 VIS not applicable for this client. rv Outcome: 06:53 Discharge ordered by . claudia 09:10 Discharged to home ambulatory, with family, rs5 09:10 Condition: stable rs5 09:10 Discharge instructions given to patient, Instructed on discharge instructions, follow up and referral plans. Demonstrated understanding of instructions, follow-up care, 09:11 Patient left the ED. rs5 Signatures: Dispatcher [employer] EDAK Natanael Goncalves MD MD cha Peltier, Brian, RN RN Kanu Anderson RN RN rv Kp Chisholm RN RN rs5
--- NOTE | 2023-05-24 06:54 | EDPHYS ---
Physician Documentation [facility] Name: Philippe Guerra Age: 22 yrs Sex: Male : 2000 Arrival Date: 05/24/2023 Time: 06:21 Bed 3 Private MD: ED Physician Natanael Goncalves HPI: 05/24 06:46 This 22 yrs old Black Male presents to ER via EMS with complaints of overdose, perc claudia with fent. 06:46 The patient presents to the emergency department after a known overdose, a result of [facility] recreational substance abuse. Context: Method: the patient has a confirmed or suspected ingestion, of narcotics. Associated signs and symptoms: Pertinent positives: apnea. Severity of symptoms: At their worst the symptoms were moderate in the emergency department the symptoms have improved markedly. weak, od , recreational drugs. The patient presents with confusion. Onset: The symptoms/episode began/occurred just prior to arrival, this morning. Possible causes: drug use. Historical: - Allergies: 06:30 No Known Allergies; rv - PMHx: 06:30 None; rv - PSHx: 06:30 Tonsillectomy; rv - Immunization history:: Adult Immunizations up to date. - Social history:: Smoking status: unknown. - Family history:: not pertinent. ROS: 06:50 Constitutional: Negative for fever, chills, and weight loss, Eyes: Negative for injury, claudia pain, redness, and discharge, ENT: Negative for injury, pain, and discharge, Neck: Negative for injury, pain, and swelling, Cardiovascular: Negative for chest pain, palpitations, and edema, Respiratory: Negative for shortness of breath, cough, wheezing, and pleuritic chest pain, Abdomen/GI: Negative for abdominal pain, nausea, vomiting, diarrhea, and constipation, Back: Negative for injury and pain, : Negative for injury, bleeding, discharge, and swelling, MS/Extremity: Negative for injury and deformity, Skin: Negative for injury, rash, and discoloration, Neuro: Negative for headache, weakness, numbness, tingling, and seizure, Psych: Negative for depression, anxiety, suicide ideation, homicidal ideation, and hallucinations, Allergy/Immunology: Negative for hives, rash, and allergies, Endocrine: Negative for neck swelling, polydipsia, polyuria, polyphagia, and marked weight changes, Hematologic/Lymphatic: Negative for swollen nodes, abnormal bleeding, and unusual bruising, Exam: 06:50 Constitutional: This is a well developed, well nourished patient who is awake, alert, claudia and in no acute distress. Head/Face: Normocephalic, atraumatic. Eyes: Pupils equal round and reactive to light, extra-ocular motions intact. Lids and lashes normal. Conjunctiva and sclera are non-icteric and not injected. Cornea within normal limits. Periorbital areas with no swelling, redness, or edema. ENT: Nares patent. No nasal discharge, no septal abnormalities noted. Tympanic membranes are normal and external auditory canals are clear. Oropharynx with no redness, swelling, or masses, exudates, or evidence of obstruction, uvula midline. Mucous membranes moist. Neck: Trachea midline, no thyromegaly or masses palpated, and no cervical lymphadenopathy. Supple, full range of motion without nuchal rigidity, or vertebral point tenderness. No Meningismus. Chest/axilla: Normal chest wall appearance and motion. Nontender with no deformity. No lesions are appreciated. Cardiovascular: Regular rate and rhythm with a normal S1 and S2. No gallops, murmurs, or rubs. Normal PMI, no JVD. No pulse deficits. Respiratory: Lungs have equal breath sounds bilaterally, clear to auscultation and percussion. No rales, rhonchi or wheezes noted. No increased work of breathing, no retractions or nasal flaring. Abdomen/GI: Soft, non-tender, with normal bowel sounds. No distension or tympany. No guarding or rebound. No evidence of tenderness throughout. Back: No spinal tenderness. No costovertebral tenderness. Full range of motion. Male : Normal genitalia with no discharge or lesions. Skin: Warm, dry with normal turgor. Normal color with no rashes, no lesions, and no evidence of cellulitis. MS/ Extremity: Pulses equal, no cyanosis. Neurovascular intact. Full, normal range of motion. Neuro: Awake and alert, GCS 15, oriented to person, place, time, and situation. Cranial nerves II-XII grossly intact. Motor strength 5/5 in all extremities. Sensory grossly intact. Cerebellar exam normal. Normal gait. Psych: Awake, alert, with orientation to person, place and time. Behavior, mood, and affect are within normal limits. 06:54 ECG was reviewed by the Attending Physician. claudia Vital Signs: 06:25 BP 132 / 90; Pulse 104; Resp 18; Temp 99.6; Pulse Ox 97% ; Weight 86.18 kg; Height 5 rv ft. 0 in. ; 06:49 BP 124 / 80; Pulse 95; Resp 18; Pulse Ox 97% on R/A; rv 06:25 Body Mass Index 37.11 (86.18 kg, 152.4 cm) rv Ayo Coma Score: 06:32 Eye Response: spontaneous(4). Motor Response: obeys commands(6). Verbal Response: rv oriented(5). Total: 15. 06:49 Eye Response: spontaneous(4). Motor Response: obeys commands(6). Verbal Response: rv oriented(5). Total: 15. MDM: 06:28 Patient medically screened. claudia 06:50 Differential diagnosis: Ingestion/exposure to narcotics. Differential Diagnosis altered claudia mental status, sepsis, flu. Differential Diagnosis: CVA, electrolyte abnormality, alcohol intoxication, hypoglycemia, intracranial bleed, overdose, pneumonia, TIA, volume depletion. Data reviewed: vital signs, nurses notes, EMS record, lab test result(s), EKG, radiologic studies, plain films. Consideration of Admission/Observation Escalation of care including admission/observation considered. I considered the following discharge prescriptions or medication management in the emergency department Medications were administered in the Emergency Department. See MAR. Test considered but Not performed: CT: no ct head. Historians other than the Patient: EMS: ems well informed. Care significantly affected by the following chronic conditions: substance abuse. Counseling: I had a detailed discussion with the patient and/or guardian regarding the historical points, exam findings, and any diagnostic results supporting the discharge/admit diagnosis, lab results, the need for outpatient follow up, for definitive care, a family practitioner, a psychiatrist. 09:04 ED course: Patient discharged by outgoing provider. Patient requested nausea meds, ci Zofran ordered, QTC 428. . 05/24 06:28 Order name: Acetaminophen; Complete Time: 07:18 [facility] 05/24 06:28 Order name: Basic Metabolic Panel; Complete Time: 07:18 [facility] 05/24 06:28 Order name: CBC with Diff; Complete Time: 09:00 [facility] 05/24 06:28 Order name: ETOH Level; Complete Time: 07:08 [facility] 05/24 06:28 Order name: Hepatic Function; Complete Time: 07:18 [facility] 05/24 06:28 Order name: PT-INR; Complete Time: 07:08 [facility] 05/24 06:28 Order name: Ptt, Activated; Complete Time: 07:08 [facility] 05/24 06:28 Order name: Salicylate; Complete Time: 09:00 [facility] 05/24 06:50 Order name: Manual Differential; Complete Time: 09:00 EDMS 05/24 06:28 Order name: Chest Single View XRAY; Complete Time: 09:00 [facility] 05/24 06:28 Order name: EKG; Complete Time: 06:29 [facility] 05/24 06:28 Order name: EKG - Nurse/Tech; Complete Time: 06:45 [facility] 05/24 06:28 Order name: IV Saline Lock; Complete Time: 06:33 [facility] 05/24 06:28 Order name: Labs collected and sent; Complete Time: 06:45 [facility] 05/24 06:28 Order name: Suicide Screening ([place]); Complete Time: 06:45 [facility] EC:54 Rate is 100 beats/min. Rhythm is regular. QRS [place] is Normal. [place] interval is normal. claudia QRS interval is normal. QT interval is normal. No Q waves. T waves are Normal. No ST changes noted. Clinical impression: Normal ECG and No evidence of ischemia. Interpreted by me. Reviewed by me. Administered Medications: 06:45 Drug: NS 0.9% IV 1000 ml IV at 1 bolus Per protocol; 1000 mL bolus Route: IV; Rate: 1 rv bolus; Site: left antecubital; 07:02 Follow up: Response: No adverse reaction rs5 09:02 Drug: Ondansetron IVP 4 mg IVP once; over 2 minutes Route: IVP; Site: left antecubital; rs5 09:11 Follow up: Response: No adverse reaction; Nausea is decreased rs5 Disposition Summary: 05/24/23 06:53 Discharge Ordered Notes: Location: Home claudia Problem: new claudia Symptoms: have improved claudia Condition: Stable claudia Diagnosis - Adverse effect of other narcotics claudia - Abuse of other non-psychoactive substances claudia - Hyperglycemia, unspecified claudia - Elevated white blood cell count claudia - Acute respiratory failure - seconday to overdose, narcotics claudia Followup: claudia - With: Private Physician - When: 2 - 3 days - Reason: Recheck today's complaints, Continuance of care, Re-evaluation by your physician Followup: claudia - With: Nael Palmer MD - When: 2 - 3 days - Reason: Recheck today's complaints, Re-evaluation by your physician Discharge Instructions: - Discharge Summary Sheet claudia - Finding Treatment for Addiction claudia - Substance Use Disorder claudia - Supporting Someone With an Addiction claudia - Prescription Drug Misuse Information claudia - Substance Use Disorder and Mental Illness claudia - Illegal Drug Use Information, Adult claudia - Supporting Someone With Substance Use Disorder claudia Forms: - Medication Reconciliation Form [facility] - Thank You Letter claudia - Antibiotic Education claudia - Prescription Opioid Use claudia - Patient Portal Instructions [facility] - Leadership Thank You Letter claudia Signatures: Dispatcher [employer] EDNatanael Alcocer MD MD cha Vicente, Ronaldo, RN RN Kp Chisholm RN RN rs5 Teresita Castillo ci Corrections: (The following items were deleted from the chart) 09:08 09:04 ED course: Patient discharged by outgoing provider. Patient requested nausea ci meds, Zofran ordered. Leukocytosis WBC 23K discussed with patient, he does not want to stay for further work up, he denies infectious symptoms. . ci
[2023-05-24 06:56] LABS: Protime INR 0.92
[2023-05-24 07:08] LABS: ALT/SGPT 55 U/L (16-61); AST/SGOT 21 U/L (15-37); Albumin 4.1 g/dL (3.4-5.0); Alkaline Phosphatase 61 U/L (45-117); BUN Blood Urea Nitrogen 12 mg/dL (7-18); Bicarbonate 32 mEq/L (21-32); Bilirubin Direct 0.1 mg/dL (0-0.2); Bilirubin Indirect, Calculated 0.2 mg/dL (0.2-0.8); Bilirubin Total 0.3 mg/dL (0.2-1.0); Glomerular Filtration Rate 82 ml/min (=/>90); Glucose Level 276 mg/dL (74-106); Potassium 4.9 mEq/L (3.5-5.1); Protein, Total 7.8 g/dL (6.4-8.2); Sodium Level 137 mEq/L (136-145)
--- NOTE | 2023-05-24 07:29 | RAD REPORT ---
EXAM DESCRIPTION: RAD - Chest Single View - 05/24/2023 6:37 am CLINICAL HISTORY: COUGH Chest pain. COMPARISON: Chest Single View dated 03/05/2021; Chest Single View dated 02/23/2021; Chest Pa And Lat (2 Views) dated 11/29/2018; CHEST SINGLE VIEW dated 09/21/2010 FINDINGS: Portable technique limits examination quality. The lungs are grossly clear. The heart is normal in size. No displaced fractures. IMPRESSION: No acute intrathoracic process suspected.
[2023-05-24 07:56] LABS: Blood Morphology Comment NOT SEEN (NOT SEEN); Platelet Estimate ADEQ
[2023-05-24] MEDS ORDERED: ONDANSETRON 4 MG/2 ML VIAL ONE (09:13)
[2023-05-24 09:39] VITALS: TEMP 99.6; O2SAT 97
[2023-05-24 09:40] VITALS: BP 124/80
== END 2023-05-24 09:11 | disposition home or self-care (01) ==
LOC: ER 06:21
DX: T40.601A Poisoning by unspecified narcotics, accidental (unintentional), initial encounter (principal); J96.00 Acute respiratory failure, unspecified whether with hypoxia or hypercapnia; R73.9 Hyperglycemia, unspecified; D72.829 Elevated white blood cell count, unspecified; T40.605A Adverse effect of unspecified narcotics, initial encounter; F55.8 Abuse of other non-psychoactive substances
CPT/HCPCS: 36415; 71045; 80048; 80076; 80143; 80179; 82077; 85025; 85610; 85730; J2405